=== PATIENT | female | born 1960 | race Caucasian/White ===

== ENCOUNTER 2019-07-21 19:43 | Emergency (ER) | payer OTHER ==
[~2019-07-21] VITALS: Ht 172.7 cm; Wt 99.8 kg
[2019-07-21 19:45] VITALS: BP 169/97
--- NOTE | 2019-07-21 19:53 | NUR ---
PT TAKEN TO BED 4
--- NOTE | 2019-07-21 20:00 | NUR ---
STATES SHE WAS WALKING ON THE FRONT PORA[place] ANDFELL, HER LEG WENT UNDERNEATH WHEN SHE FELL AND LANDE DON HER LEFT SIDE WELL HITTING HER HEAD ON CONCRETE. A & O X4, NO LOC, NO HEMATOMA PRESNT ON THE HEAD. NO BLEEDING NOTED. NO OBVIOUS DOFORMITY NOTED NOTED ON EXTREM. LEFT LEG,FOOT, AND ANKLE SHOWS SWELLING AND PT IS UNABLE TO BEAR WT ON LEFT LEG. ALOS CANT MOVE TOES CAUSE IT HURTS TO MOVE THEM. PULSES AND SENSATION INTACT. PT ALSO STATES HER LEFT HAND MIDDLE DIGIT HURTS TO MOVE WELL. NO OBVIOUS DEFORMITY NOTED. VSS. ALLERGIES: PENICLLIN, DILAUDID,BENADRYL, AND SULFA. PMH: MIGRANES.
--- NOTE | 2019-07-21 20:17 | NUR ---
X-Ray at bedside.
[2019-07-21] MEDS ORDERED: KETOROLAC 30 MG/ML VIAL IM ONE (20:35)
--- NOTE | 2019-07-21 21:47 | NUR ---
PTS LEFT 3RD FINGER WAS PLACED IN A FROG SPLINT AND AN JUAN A WRAP ON LEFT ANKEL. CRUTCHES WERE GIVEN TO PT AND SHOWED GOOD USE OF CRUTCHES. PTS PMSC WNL.
--- NOTE | 2019-07-21 21:55 | NUR ---
Pt reports that pain is not relieved by Toradol IM. Pt requesting for additional pain med. Per Hossein HERNANDEZ, pt can picker tender helper Rx Tramadol and Tylenol tonight for pain. Pt given 24-hour Pharmacy addresses. BP 173/108, HR 77. Triage BP was 169/97. Pt denies CP, SOB, dizziness, n/v at this time. Per Hossein HERNANDEZ, no need for antihypertensive meds, pt can follow up with PCP, pt made aware who verbalized understsanding.
[2019-07-21 22:00] VITALS: BP 173/108
--- NOTE | 2019-07-21 22:00 | NUR ---
Patient discharged with v/s stable. Written and verbal after care instructions given and explained. Patient alert, oriented and verbalized understanding of instructions. Ambulatory with crutches. All questions addressed prior to discharge. ID band removed. Patient advised to follow up with PMD. Rx of Tramadol, Tylenol given. Patient educated on indication of medication including possible reaction and side effects. Opportunity to ask questions provided and answered.
== END 2019-07-21 22:00 | disposition home or self-care (01) ==
LOC: MED 19:43
DX: S93.602A Unspecified sprain of left foot, initial encounter (principal); S60.032A Contusion of left middle finger without damage to nail, initial encounter; M25.552 Pain in left hip; G43.909 Migraine, unspecified, not intractable, without status migrainosus; Z88.0 Allergy status to penicillin; Z88.8 Allergy status to other drugs, medicaments and biological substances; Z90.710 Acquired absence of both cervix and uterus; Z85.850 Personal history of malignant neoplasm of thyroid; W22.8XXA Striking against or struck by other objects, initial encounter; Y93.01 Activity, walking, marching and hiking; Y92.89 Other specified places as the place of occurrence of the external cause; Y99.8 Other external cause status
CPT/HCPCS: 29130; 73130; 73630; 96372; 99283; J1885